=== PATIENT | male | born 1960 | race American Indian/Alaskan Native ===

== ENCOUNTER 2017-08-21 07:49 | Day surgery (SDC) | payer MEDICAID ==
[2017-08-17 15:27] VITALS: BMI 31.8
[2017-08-21] MEDS ORDERED: Propofol 10 mg/ml Inj (20 ML) ONE (09:06)
[2017-08-21] MEDS ORDERED: Sodium Chloride 0.9% 1,000 ML IV SCH (10:00)
[2017-08-21 10:49] VITALS: BP 150/97; PULSE 61; RESP 15; TEMP 97.9; O2SAT 98
== END 2017-08-21 11:13 | disposition home or self-care (01) ==
LOC: ENDO 07:49
PROVIDERS: ATTEND Internal Medicine
DX: K29.50 Unspecified chronic gastritis without bleeding (principal); K29.80 Duodenitis without bleeding; R10.13 Epigastric pain
CPT/HCPCS: 43239; 88305; 88342; J2001; J2704; J3010; J7040 ×2